=== PATIENT | female | born 1960 | race Caucasian/White ===

== ENCOUNTER → 2016-10-17 | Outpatient (REF) | payer OTHER ==
[~2016-10-17] MED LIST: ACET-654 PO; ASPI325T PO; FISH1000 PO; FLOMAX PO; IBUP40TA PO; KEFL500C7 PO; LEVA500T PO; LEVO500T32 PO; LORT1TAB PO; OMEP40CA2 PO; OXYB5TA PO; PERC5TAB6 PO; VITA400C29 PO; VITMTA PO; ZOFR4TAB3 SL
== END ==
LOC: M SMT 12:58
PROVIDERS: ATTEND Urology
DX: R50.9 Fever, unspecified (principal)

== ENCOUNTER → 2016-12-15 | Outpatient (REF) | payer OTHER | LOC: M SMT 16:55 | PROVIDERS: ATTEND Urology | DX: N39.0 Urinary tract infection, site not specified (principal) ==

== ENCOUNTER 2016-12-26 15:54 | Emergency (ER) | payer OTHER ==
[~2016-12-26] VITALS: Ht 162.6 cm; Wt 129.3 kg
[2016-12-26 15:55] VITALS: BP 137/76
[2016-12-26] MEDS ORDERED: omega red (16:35)
[2016-12-26] MEDS ORDERED: BENA25CA4 PO (16:35)
[2016-12-26] MEDS ORDERED: PROBCAP4 PO (16:35)
[2016-12-26] MEDS ORDERED: VITA400C97 PO (16:35)
[2016-12-26] MEDS ORDERED: VITA50003 PO (16:35)
[2016-12-26] MEDS ORDERED: CRAN125T PO (16:35)
[2016-12-26] MEDS ORDERED: VITA400T2 PO (16:35)
[2016-12-26] MEDS ORDERED: FAMOTIDINE IV BAG 20 MG in APPROPRIATE DILUENT 1 EA IV ONE (16:45)
[2016-12-26] MEDS ORDERED: methylPREDNISolone INJ 125 MG/2 ML VIAL (J2930) IV ONE (16:45)
[2016-12-26 17:37] LABS: BASO % 0.2 % (0.0-1.0); EOS # 0.2 K/mm3 (0.0-0.50); EOS % 4.3 % (0.0-3.0); LARGE UNSTAINED CELL # 0.1 K/mm3 (0.0-0.4); LARGE UNSTAINED CELL % 1.4 % (0.0-4.0); LYMPH # 0.9 K/mm3 (1.5-4.5); LYMPH % 23.8 % (24.0-44.0); MEAN CORPUSCULAR HEMOGLOBIN 27.6 pg (27.0-33.0); MEAN CORPUSCULAR HGB CONC 33.6 g/dl (32.0-36.5); MEAN CORPUSCULAR VOLUME 82.1 fl (80.0-96.0); MONO # 0.2 K/mm3 (0.0-0.8); MONO % 5.7 % (0.0-5.0); NEUTROPHILS # 2.4 K/mm3 (1.8-7.7); NEUTROPHILS % 64.6 % (36.0-66.0); PLATELET COUNT, AUTOMATED 178 k/mm3 (150-450); RED CELL DISTRIBUTION WIDTH 15.5 % (11.5-14.5); WHITE BLOOD COUNT 3.7 K/mm3 (4.0-10.0)
[2016-12-26] MEDS ORDERED: PERCOCET 5MG/325MG TAB PO ONE (17:45)
[2016-12-26 17:57] LABS: ANION GAP 9 MEQ/L (8-16); BLOOD UREA NITROGEN 10 MG/DL (7-18); CALCIUM LEVEL 8.8 MG/DL (8.5-10.1); CARBON DIOXIDE LEVEL 27 MEQ/L (21-32); CHLORIDE LEVEL 106 MEQ/L (98-107); CREATININE FOR GFR 0.95 MG/DL (0.55-1.02); GLOMERULAR FILTRATION RATE > 60.0 (>51); GLUCOSE, FASTING 90 MG/DL (70-105); POTASSIUM SERUM 4.1 MEQ/L (3.5-5.1); SODIUM LEVEL 142 MEQ/L (136-145)
--- NOTE | 2016-12-26 18:18 | REP ---
Portable chest, single AP view, the patient upright: Comparison is 09/25/2016. The lung dolan are clear. The cardiac size is borderline. The yao, mediastinum, and bony thorax are unremarkable. Impression: Negative portable chest, except for borderline heart size. There is no interval change. Signed by Bran Figueroa MD 12/26/2016 06:09 P
--- NOTE | 2016-12-27 08:20 | ECGEPIP ---
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
== END 2016-12-26 18:44 | disposition home or self-care (01) ==
LOC: M ED 16:39
DX: R07.9 Chest pain, unspecified (principal); T78.40XA Allergy, unspecified, initial encounter; Z87.440 Personal history of urinary (tract) infections; Z87.442 Personal history of urinary calculi; E66.9 Obesity, unspecified; Z79.82 Long term (current) use of aspirin; Z79.899 Other long term (current) drug therapy
CPT/HCPCS: 71010; 80048; 82550; 82553; 85025; 93005; 96374; 96375; 99283; J2930

== ENCOUNTER → 2016-12-29 | Outpatient (REF) | payer OTHER ==
[~2016-12-29] MED LIST changes: +BENA25CA4 PO; +CRAN125T PO; +PROBCAP4 PO; +VITA400C97 PO; +VITA400T2 PO; +VITA50003 PO; +omega red
== END ==
LOC: M SMT 16:59
PROVIDERS: ATTEND Urology
DX: N39.0 Urinary tract infection, site not specified (principal)

== ENCOUNTER → 2017-02-01 | Outpatient (REF) | payer OTHER ==
[2017-02-02 13:06] LABS: PERCENT SATURATION 10.9 % (13.2-37.4)
[2017-02-02 13:23] LABS: FOLATE 14.9 NG/ML
== END ==
LOC: M LAB REF 12:03
PROVIDERS: ATTEND Nurse Practitioner Family
DX: D64.9 Anemia, unspecified (principal)

== ENCOUNTER → 2017-10-29 | Outpatient (REF) | payer OTHER | LOC: M LAB REF 12:49 | DX: R30.0 Dysuria (principal) ==

== ENCOUNTER 2019-04-11 06:32 | Day surgery (SDC) | payer OTHER ==
[~2019-04-11] VITALS: Ht 160 cm; Wt 13.2 kg
[2019-04-11] MEDS: NS 1,000 ML IV ONE (06:00)
[~2019-04-11 06:32] MED LIST changes: -ACET-654 PO; +ACET1TAB55 PO; +ASPI-1 PO; -ASPI325T PO; +CVS1CAP2 PO; +D3 U1000 PO; +KEFL500C17 PO; -KEFL500C7 PO; +LEVA1TAB2 PO; -LEVA500T PO; +LEVO500T3 PO; -LEVO500T32 PO; +OMEG10002 PO; -OXYB5TA PO; +OXYB5TAB10 PO; +PERC5TAB12 PO; -PERC5TAB6 PO; +VITA-110 PO; +VITA-157 PO; +VITA1CHW8 PO; -VITA400C29 PO; -VITA50003 PO; +VITA50005 PO; +ZANTTAB11 PO; +ZOFR4TAB14 SL; -ZOFR4TAB3 SL
[2019-04-11] MEDS ORDERED: LIDOCAINE 2% INJ 100 MG/5 ML SDV (FOR ANES.) As Ordered ONE (07:00)
[2019-04-11] MEDS ORDERED: fentaNYL 100 MCG/2 ML INJECTION (J3010) As Ordered ONE (07:00)
[2019-04-11] MEDS ORDERED: PROPOFOL 500 MG/50 ML VIAL As Ordered ONE (07:01)
--- NOTE | 2019-04-11 07:46 | ROOR ---
Patient Name: Halina Gordon Procedure Date: 04/11/2019 7:31 AM Date of : 1960 Age: 58 Room: [facility] Gender: Female Note Status: Finalized Procedure: Upper Endoscopy + Biopsies Indications: Heartburn, Exclusion of Veloz's esophagus Providers: Thor Kraft MD Referring MD: MINERVA REYES NP Requesting Provider: Medicines: Monitored Anesthesia Care Complications: No immediate complications. Procedure: Pre-Anesthesia Assessment: - The heart rate, respiratory rate, oxygen saturations, blood pressure, adequacy of pulmonary ventilation, and response to care were monitored throughout the procedure. The Endoscope was introduced through the mouth, and advanced to the second part of duodenum. The upper GI endoscopy was accomplished without difficulty. The patient tolerated the procedure well. Findings: The Z-line was regular and was found 35 cm from the incisors. Multiple biopsies were obtained with cold forceps for evaluation to rule out Veloz's Esophagus randomly at the gastroesophageal junction. Mucosal changes including ringed esophagus were found in the lower third of the esophagus. Biopsies were taken with a cold forceps for histology. No other significant abnormalities were identified in a careful examination of the stomach. The exam of the duodenum was otherwise normal. Impression: - Z-line regular, 35 cm from the incisors. - Esophageal mucosal changes suggestive of eosinophilic esophagitis. Biopsied. - Multiple biopsies were obtained at the gastroesophageal junction. - The examination was otherwise normal. Recommendation: - Await pathology results. - Discharge patient to home. - Follow an antireflux regimen. - Continue present medications. - Await pathology results. - Telephone GI clinic for pathology results in 1 week. - Repeat upper endoscopy for surveillance based on pathology results. - Check Portal Online for Path Results.([email or web address]) - The findings and recommendations were discussed with the patient's family. Thor Kraft MD Thor Kraft MD 04/11/2019 7:46:10 AM Electronically signed by Thor Kraft MD Number of Addenda: 0 Note Initiated On: 04/11/2019 7:31 AM Estimated Blood Loss: Estimated blood loss: none.
--- NOTE | 2019-04-11 08:05 | ROOR ---
Patient Name: Halina Gordon Procedure Date: 04/11/2019 7:32 AM Date of : 1960 Age: 58 Room: [facility] Gender: Female Note Status: Finalized Procedure: Total Colonoscopy to Cecum + Biopsy Polypectomy Indications: Screening for colorectal malignant neoplasm Providers: Thor Kraft MD Referring MD: MINERVA REYES NP Requesting Provider: Medicines: Monitored Anesthesia Care Complications: No immediate complications. Procedure: Pre-Anesthesia Assessment: - The heart rate, respiratory rate, oxygen saturations, blood pressure, adequacy of pulmonary ventilation, and response to care were monitored throughout the procedure. The Colonoscope was introduced through the anus and advanced to the cecum, identified by appendiceal orifice and ileocecal valve. The colonoscopy was performed without difficulty. The patient tolerated the procedure well. The quality of the bowel preparation was good. Findings: The perianal and digital rectal examinations were normal. Multiple small and large-mouthed diverticula were found in the recto-sigmoid colon, sigmoid colon and descending colon. A diminutive polyp was found in the cecum. The polyp was flat. The polyp was removed with a cold biopsy forceps. Resection and retrieval were complete. The exam was otherwise without abnormality on direct and retroflexion views. Impression: - Diverticulosis in the recto-sigmoid colon, in the sigmoid colon and in the descending colon. - One diminutive polyp in the cecum, removed with a cold biopsy forceps. Resected and retrieved. - The examination was otherwise normal on direct and retroflexion views. - The exam was otherwise normal to the cecum. Recommendation: - Patient has a contact number available for emergencies. The signs and symptoms of potential delayed complications were discussed with the patient. Return to normal activities tomorrow. Written discharge instructions were provided to the patient. - Discharge patient to home. - High fiber diet. - Continue present medications. - Await pathology results. - Telephone GI clinic for pathology results in 1 week. - Check Portal Online for Path Results.([email or web address]) - Return to referring physician. - Repeat colonoscopy in 10 years for screening purposes. - Return to referring physician. - The findings and recommendations were discussed with the patient's family. Thor Kraft MD Thor Kraft MD 04/11/2019 8:05:09 AM Electronically signed by Thor Karft MD Number of Addenda: 0 Note Initiated On: 04/11/2019 7:32 AM Estimated Blood Loss: Estimated blood loss: none.
[2019-04-11 08:30] VITALS: BP 138/86
== END 2019-04-11 08:55 | disposition home or self-care (01) ==
LOC: M OPP 06:32
PROVIDERS: ATTEND Internal Medicine Gastroenterology
DX: D12.0 Benign neoplasm of cecum (principal); K57.30 Diverticulosis of large intestine without perforation or abscess without bleeding; R12 Heartburn; K22.8 Other specified diseases of esophagus; Z12.11 Encounter for screening for malignant neoplasm of colon
CPT/HCPCS: 43239; 45380; 88305; J3010

== ENCOUNTER 2019-10-23 06:01 | Emergency (ER) | payer OTHER ==
[~2019-10-23] VITALS: Ht 160 cm; Wt 136.9 kg
[~2019-10-23 06:01] MED LIST changes: -OMEP40CA2 PO; +OMEP40CA97 PO; +RANI75TA52 PO; -ZANTTAB11 PO
--- NOTE | 2019-10-23 06:42 | ECGEPIP ---
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
[2019-10-23 07:05] LABS: BASO % 0.7 % (0.0-1.0); EOS # 0.1 10^3/uL (0.0-0.5); EOS % 2.6 % (0.0-3.0); HEMATOCRIT 37.2 % (36.0-47.0); HEMOGLOBIN 11.5 g/dl (12.0-15.5); LYMPH # 1.3 10^3/uL (1.5-5.0); LYMPH % 24.5 % (24.0-44.0); MEAN CORPUSCULAR HEMOGLOBIN 27.2 pg (27.0-33.0); MEAN CORPUSCULAR HGB CONC 30.9 g/dl (32.0-36.5); MEAN CORPUSCULAR VOLUME 87.9 fl (80.0-96.0); MONO # 0.3 10^3/uL (0.0-0.8); MONO % 6.3 % (0.0-5.0); NEUTROPHILS # 3.6 10^3/uL (1.5-8.5); NEUTROPHILS % 65.5 % (36.0-66.0); PLATELET COUNT, AUTOMATED 214 10^3/uL (150-450); RED BLOOD COUNT 4.23 10^6/uL (4.00-5.40); WHITE BLOOD COUNT 5.4 10^3/uL (4.0-10.0)
[2019-10-23 07:16] LABS: INR 1.01
[2019-10-23 07:27] LABS: ALBUMIN 3.5 GM/DL (3.2-5.2); ALT/SGPT 20 U/L (12-78); BILIRUBIN,DIRECT 0.1 MG/DL (0.0-0.2); BILIRUBIN,TOTAL 0.3 MG/DL (0.2-1.0); CK-MB VALUE MASS 2.4 NG/ML (<3.6); CPK CREATINE PHOSPHOKINASE 131 U/L (26-192); LIPASE 139 U/L (73-393); MB/CK RELATIVE INDEX 1.83 (< OR =4); TOTAL PROTEIN 6.5 GM/DL (6.4-8.2); TROPONIN I < 0.02 NG/ML (< 0.10)
[2019-10-23] MEDS ORDERED: ISOVUE-370 76% 100ML VIAL (Q9967) As Ordered ONE (08:12)
--- NOTE | 2019-10-23 11:27 | REP ---
Portable chest x-ray: Single view. History: Chest pain. Comparison study: December 26, 2016. Findings: A. Arm minimal linear densities in the left base consistent with plate-like atelectasis. The lungs are otherwise clear and well inflated. Cardiomediastinal silhouette is unremarkable and unchanged. Pulmonary vasculature is slightly cephalized. No pleural effusion or pulmonary edema. Impression: Minimal plate-like atelectasis left base. Cephalization. Otherwise no acute disease. Electronically Signed by Anton Ken MD 10/23/2019 07:57 A
--- NOTE | 2019-10-23 11:29 | REP ---
Duplex extremity venous ultrasound: Bilateral lower extremities. History: Swelling and chest pain. Rule out DVT. Findings: Exam quality is somewhat inhibited by body habitus and the patient has difficulty tolerating compression. The deep veins are anechoic and fully compressible from the groin to the popliteal fossa in the left and right lower extremity. Color flow imaging is homogeneous. Spectral Doppler interrogation demonstrates intact respiratory variation in flow and normal manual augmentation of flow. There is no evidence of deep vein thrombosis. Impression: Negative bilateral lower extremity duplex venous ultrasound. No evidence of deep vein thrombosis. Electronically Signed by Anton Ken MD 10/23/2019 08:57 A
--- NOTE | 2019-10-23 11:54 | REP ---
CT pulmonary angiogram: With IV contrast. History: Pleuritic chest pain. Comparison studies: Comparison CT study February 03, 2015. Contrast dose: 75 mL of Isovue [address] technique: Helical scanning is acquired and overlapping 1.5 mm and contiguous 3 mm axial images are reformatted. In addition, maximum intensity projection and multiplanar re-formation images are generated in sagittal and coronal imaging projections. CT pulmonary angiographic findings: There is good opacification of the pulmonary arterial tree. No filling defect or vessel cutoff is seen to suggest pulmonary embolism. There is no evidence of thoracic aortic aneurysm or dissection. No hilar or mediastinal mass or adenopathy is observed. No pleural or pericardial effusion is seen. The visualized upper abdominal structures are unremarkable. No adrenal lesion is observed. There is bilateral lower lobe linear fibrosis in the lung dolan mild in degree unchanged from the January 2015 prior study. No pulmonary infiltrate is seen. No lung mass lesion is observed. No significant pulmonary nodule is appreciated. Bone window settings show no bony destructive lesion. Impression: No CT evidence of pulmonary embolus. Bibasilar linear fibrosis unchanged from comparison study 2014. No acute disease. Electronically Signed by Anton Ken MD 10/23/2019 06:26 P
[2019-10-23 12:42] LABS: CPK CREATINE PHOSPHOKINASE 110 U/L (26-192); MB/CK RELATIVE INDEX 1.82 (< OR =4); TROPONIN I < 0.02 NG/ML (< 0.10)
[2019-10-23 13:23] VITALS: BP 122/67
--- NOTE | 2019-10-23 19:21 | ECGEPIP ---
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
== END 2019-10-23 13:49 | disposition home or self-care (01) ==
LOC: M ED 06:01
DX: R07.9 Chest pain, unspecified (principal); R06.02 Shortness of breath; Z79.899 Other long term (current) drug therapy; Z79.82 Long term (current) use of aspirin; Z88.1 Allergy status to other antibiotic agents; Z88.2 Allergy status to sulfonamides
CPT/HCPCS: 36415; 71045; 71275; 80047; 80076; 82550; 82553; 83690; 84484; 85025; 85610; 93005; 93041; 93970; 94760; 99285; Q9967

== ENCOUNTER → 2020-11-01 | Outpatient (REF) | payer OTHER ==
[~2020-11-01] MED LIST changes: +IBUP1TAB5 PO; -IBUP40TA PO
== END ==
LOC: M LAB REF 16:30
PROVIDERS: ATTEND Registered Nurse
DX: R35.0 Frequency of micturition (principal)

== ENCOUNTER 2022-03-13 20:29 | Emergency (ER) | payer OTHER ==
[~2022-03-13] VITALS: Ht 162.6 cm; Wt 138.6 kg
[~2022-03-13 20:29] MED LIST changes: -LEVO500T3 PO; +LEVO500T4 PO; +OMEP40CA4 PO; -OMEP40CA97 PO; -VITA-157 PO; +VITAE40CA PO
[2022-03-13 21:55] LABS: BASO % 0.3 % (0.0-1.0); EOS # 0.2 10^3/uL (0.0-0.5); EOS % 1.7 % (0.0-3.0); HEMATOCRIT 36.3 % (36.0-47.0); HEMOGLOBIN 11.7 g/dl (12.0-15.5); LYMPH # 1.9 10^3/uL (1.5-5.0); LYMPH % 20.5 % (24.0-44.0); MEAN CORPUSCULAR HEMOGLOBIN 28.7 pg (27.0-33.0); MEAN CORPUSCULAR HGB CONC 32.2 g/dl (32.0-36.5); MONO # 0.5 10^3/uL (0.0-0.8); MONO % 5.9 % (2.0-8.0); NEUTROPHILS # 6.4 10^3/uL (1.5-8.5); NEUTROPHILS % 71.2 % (36.0-66.0); PLATELET COUNT, AUTOMATED 206 10^3/uL (150-450); RED BLOOD COUNT 4.08 10^6/uL (4.00-5.40)
[2022-03-13 22:12] LABS: ERYTHROCYTE SEDIMENTATION RATE 33 mm/hr (0-30)
[2022-03-13 22:16] LABS: BLOOD UREA NITROGEN 15 MG/DL (7-18); C REACTIVE PROTEIN QUANTITATIV 1.73 MG/DL (0.00-0.30); CALCIUM LEVEL 8.8 MG/DL (8.5-10.1); CARBON DIOXIDE LEVEL 27 MEQ/L (21-32); CHLORIDE LEVEL 110 MEQ/L (98-107); CREATININE FOR GFR 0.84 MG/DL (0.55-1.30); GLOMERULAR FILTRATION RATE > 60.0 (>51); GLUCOSE, FASTING 107 MG/DL (70-100); POTASSIUM SERUM 3.8 MEQ/L (3.5-5.1); SODIUM LEVEL 142 MEQ/L (136-145)
[2022-03-13] MEDS ORDERED: CLINDAMYCIN 150MG CAPSULE PO ONE (23:00)
[2022-03-13] MEDS ORDERED: CLEO300C2 PO (23:03)
[2022-03-13 23:22] VITALS: BP 140/82
== END 2022-03-13 23:22 | disposition home or self-care (01) ==
LOC: M ED 20:29
DX: L03.116 Cellulitis of left lower limb (principal); F33.9 Major depressive disorder, recurrent, unspecified; F41.9 Anxiety disorder, unspecified; K21.9 Gastro-esophageal reflux disease without esophagitis; Z87.19 Personal history of other diseases of the digestive system; Z87.442 Personal history of urinary calculi; Z88.2 Allergy status to sulfonamides; Z79.899 Other long term (current) drug therapy; Z79.82 Long term (current) use of aspirin

== ENCOUNTER → 2022-03-15 | Outpatient (CLI) | payer OTHER ==
[~2022-03-15] MED LIST changes: +CLEO300C2 PO
== END ==
LOC: M WHC 15:46
PROVIDERS: ATTEND Registered Nurse
DX: Z12.31 Encounter for screening mammogram for malignant neoplasm of breast (principal); Z78.0 Asymptomatic menopausal state; Z80.3 Family history of malignant neoplasm of breast

== ENCOUNTER → 2022-03-16 | Outpatient (REF) | payer OTHER | LOC: M LAB REF 17:15 | PROVIDERS: ATTEND Registered Nurse | DX: L03.116 Cellulitis of left lower limb (principal) ==

== ENCOUNTER → 2022-03-24 | Outpatient (REF) | payer OTHER | LOC: M LAB REF 16:12 | PROVIDERS: ATTEND Registered Nurse | DX: L03.116 Cellulitis of left lower limb (principal); R79.82 Elevated C-reactive protein (CRP) ==

== ENCOUNTER → 2022-03-31 | Outpatient (REF) | payer OTHER | LOC: M LAB REF 17:48 | PROVIDERS: ATTEND Registered Nurse | DX: L03.116 Cellulitis of left lower limb (principal); R79.82 Elevated C-reactive protein (CRP) ==

== ENCOUNTER → 2022-05-10 | Outpatient (CLI) | payer OTHER ==
[~2022-05-10] MED LIST changes: +PROHANCE 279.3MG/ML 15ML VIAL ONE; +PROHANCE 279.3MG/ML 5ML VIAL ONE
== END ==
LOC: M PLAIMG 14:57
PROVIDERS: ATTEND Registered Nurse
DX: M79.662 Pain in left lower leg (principal); R60.0 Localized edema
CPT/HCPCS: 73720; A9576

== ENCOUNTER → 2022-11-29 | Outpatient (CLI) | payer OTHER ==
[~2022-11-29] MED LIST changes: +ECOT81TA5 PO; +LEVO1TAB39 PO; -LEVO500T4 PO; +OMEP-173 PO; -PROHANCE 279.3MG/ML 15ML VIAL ONE; -PROHANCE 279.3MG/ML 5ML VIAL ONE; +VITA-199 PO; +VITA400T26 PO
== END ==
LOC: M LABSMTC 09:59
PROVIDERS: ATTEND Internal Medicine Gastroenterology
DX: Z01.812 Encounter for preprocedural laboratory examination (principal); Z11.52 Encounter for screening for COVID-19

== ENCOUNTER 2022-12-04 10:10 | Day surgery (SDC) | payer OTHER ==
[~2022-12-04] VITALS: Ht 160 cm; Wt 134.0 kg
[~2022-12-04 10:10] MED LIST changes: +LIDOCAINE 2% 100MG/5ML SDV (FOR ANES.) As Ordered ONE; +NS 1,000 ML IV ONE; +propofoL 200 MG/20 ML VIAL As Ordered ONE
[2022-12-04 12:34] VITALS: BP 125/67
== END 2022-12-04 12:55 | disposition home or self-care (01) ==
LOC: M OPP 10:10
PROVIDERS: ATTEND Internal Medicine Gastroenterology
DX: Z12.11 Encounter for screening for malignant neoplasm of colon (principal); Z86.010 Personal history of colon polyps; K64.0 First degree hemorrhoids; K57.30 Diverticulosis of large intestine without perforation or abscess without bleeding; Z87.19 Personal history of other diseases of the digestive system; Z87.442 Personal history of urinary calculi; Z79.82 Long term (current) use of aspirin; Z79.899 Other long term (current) drug therapy; Z88.2 Allergy status to sulfonamides

== ENCOUNTER → 2023-08-23 | Outpatient (CLI) | payer OTHER ==
[~2023-08-23] MED LIST changes: -LIDOCAINE 2% 100MG/5ML SDV (FOR ANES.) As Ordered ONE; -NS 1,000 ML IV ONE; -OXYB5TAB10 PO; +OXYB5TAB11 PO; -propofoL 200 MG/20 ML VIAL As Ordered ONE
== END ==
LOC: M WHC 16:30
PROVIDERS: ATTEND Internal Medicine
DX: Z12.31 Encounter for screening mammogram for malignant neoplasm of breast (principal)

== ENCOUNTER → 2024-04-25 | Outpatient (REF) | payer OTHER ==
[~2024-04-25] MED LIST changes: -OXYB5TAB11 PO; +OXYB5TAB14 PO
== END ==
LOC: M LAB REF 12:13
PROVIDERS: ATTEND Internal Medicine
DX: N39.0 Urinary tract infection, site not specified (principal)

== ENCOUNTER → 2024-05-28 | Outpatient (CLI) | payer OTHER | LOC: M PLAIMG 15:25 | PROVIDERS: ATTEND Internal Medicine | DX: R06.00 Dyspnea, unspecified (principal) ==

== ENCOUNTER → 2024-11-05 | Outpatient (CLI) | payer OTHER | LOC: M WHC 12:59 | PROVIDERS: ATTEND Internal Medicine | DX: Z12.31 Encounter for screening mammogram for malignant neoplasm of breast (principal); Z13.820 Encounter for screening for osteoporosis ==

== ENCOUNTER → 2025-01-20 | Outpatient (REF) | payer OTHER ==
[2025-01-20 18:06] LABS: APPEARANCE, URINE HAZY (CLEAR); BACTERIA, URINE AUTO 1+ (NEGATIVE); BILIRUBIN, URINE AUTO NEGATIVE (NEGATIVE); BLOOD, URINE BLOOD 1+ (NEGATIVE); COLOR, URINE YELLOW (YELLOW); GLUCOSE, URINE (UA) AUTO NEGATIVE (NEGATIVE); KETONE, URINE AUTO NEGATIVE (NEGATIVE); LEUKOCYTE ESTERASE, URINE AUTO 3+ (NEGATIVE); MUCUS, URINE SMALL (NEGATIVE); NITRITE, URINE AUTO NEGATIVE (NEGATIVE); PROTEIN, URINE AUTO NEGATIVE (NEGATIVE); RBC, URINE AUTO 10 /HPF (0-3); SPECIFIC GRAVITY URINE AUTO 1.017 (1.002-1.035); SQUAMOUS EPITHELIAL CELL UR AU 3 /HPF (0-6); UROBILINOGEN, URINE AUTO 0.2 mg/dL (0.0-2.0); WBC, URINE AUTO 69 /HPF (0-3)
== END ==
LOC: M LAB REF 17:15
PROVIDERS: ATTEND Internal Medicine
DX: M54.50 Low back pain, unspecified (principal); N39.0 Urinary tract infection, site not specified

== ENCOUNTER → 2025-01-26 | Outpatient (CLI) | payer OTHER | LOC: M PLALAB 15:41 → M PLAIMG 15:41 | PROVIDERS: ATTEND Internal Medicine | DX: R10.32 Left lower quadrant pain (principal); R06.02 Shortness of breath; M47.817 Spondylosis without myelopathy or radiculopathy, lumbosacral region; M47.814 Spondylosis without myelopathy or radiculopathy, thoracic region ==

== ENCOUNTER 2025-04-07 16:42 | Emergency (ER) | payer OTHER ==
[~2025-04-07] VITALS: Ht 160 cm; Wt 139.5 kg
[2025-04-07] MEDS: dexAMETHasone 20 MG/5 ML VIAL IV ONE (18:07)
[2025-04-07] MEDS: FAMOTIDINE 20 MG/2 ML VIAL IVP ONE (18:08)
[2025-04-07] MEDS ORDERED: ISOVUE-370 76% 100 ML VIAL As Ordered ONE (18:20)
[2025-04-07 18:24] LABS: BASO % 0.6 % (0.0-1.0); EOS # 0.1 10^3/uL (0.0-0.5); EOS % 1.8 % (0.0-3.0); HEMATOCRIT 38.9 % (36.0-47.0); HEMOGLOBIN 12.7 g/dl (12.0-15.5); LYMPH # 1.3 10^3/uL (1.5-5.0); LYMPH % 20.1 % (24.0-44.0); MEAN CORPUSCULAR HEMOGLOBIN 28.6 pg (27.0-33.0); MEAN CORPUSCULAR HGB CONC 32.6 g/dl (32.0-36.5); MEAN CORPUSCULAR VOLUME 87.6 fl (80.0-96.0); MONO # 0.4 10^3/uL (0.0-0.8); MONO % 6.7 % (2.0-8.0); NEUTROPHILS # 4.7 10^3/uL (1.5-8.5); NEUTROPHILS % 70.6 % (36.0-66.0); PLATELET COUNT, AUTOMATED 235 10^3/uL (150-450); RED BLOOD COUNT 4.44 10^6/uL (4.00-5.40); WHITE BLOOD COUNT 6.6 10^3/uL (4.0-10.0)
[2025-04-07] MEDS: cefTRIAXone SOD 1 GM in DEXTROSE 5% (D5W) ADV/MINI-BAG 50 ML IV ONE (19:36)
[2025-04-07 20:30] VITALS: BP 138/65
[2025-04-07] MEDS: CETIRIZINE 10 MG TAB PO ONE (20:38)
[2025-04-07] MEDS: ERYTHROMYCIN OPHTH OINT OS ONE (20:38)
[2025-04-07 20:45] VITALS: TEMP 97.6; O2SAT 97
[2025-04-25] MEDS ORDERED: [UNRECOGNIZED DRUG - CODE] OS (23:37)
[2025-04-25] MEDS ORDERED: PREDOPD OS (23:37)
[2025-04-25] MEDS ORDERED: VALA-3 PO (23:37)
== END 2025-04-07 20:52 | disposition home or self-care (01) ==
LOC: M ED 16:42
DX: H01.004 Unspecified blepharitis left upper eyelid (principal); H10.32 Unspecified acute conjunctivitis, left eye; K21.9 Gastro-esophageal reflux disease without esophagitis; F41.9 Anxiety disorder, unspecified; F32.A Depression, unspecified; Z88.2 Allergy status to sulfonamides; Z79.1 Long term (current) use of non-steroidal anti-inflammatories (NSAID); Z79.899 Other long term (current) drug therapy; Z79.810 Long term (current) use of selective estrogen receptor modulators (SERMs)
CPT/HCPCS: 70481; 80047; 85025; 86140; 87040; 96374; 96375; 99284; J0696; J1100; J1308; Q9967

== ENCOUNTER → 2025-05-18 | Outpatient (CLI) | payer OTHER ==
[~2025-05-18] MED LIST changes: +PREDOPD OS; +VALA-3 PO; +[UNRECOGNIZED DRUG - CODE] OS
== END ==
LOC: M PLAIMG 09:48
PROVIDERS: ATTEND Internal Medicine
DX: R06.00 Dyspnea, unspecified (principal); J98.4 Other disorders of lung

== ENCOUNTER → 2025-06-10 | Outpatient (CLI) | payer OTHER | LOC: M CARPUL 08:19 | PROVIDERS: ATTEND Internal Medicine | DX: R06.00 Dyspnea, unspecified (principal) ==

== ENCOUNTER → 2025-06-20 | Outpatient (CLI) | payer OTHER | LOC: M RAD 14:38 | PROVIDERS: ATTEND Internal Medicine | DX: I67.1 Cerebral aneurysm, nonruptured (principal) ==